=== PATIENT | male | born 1955 | race African-American/Black ===

== ENCOUNTER 2023-05-23 13:39 | Outpatient (CLI) | payer OTHER, SELFPAY ==
[2023-05-23 17:07] LABS: Basophils Absolute Auto 0.03 K/uL (0.00-0.30); Basophils Percent Auto 0.3 % (0.0-3.0); Eosinophils Absolute Auto 0.14 K/uL (0.00-0.50); Eosinophils Percent Auto 1.6 % (0.0-7.0); Hematocrit 40.4 % (37.0-53.0); Immature Granulocytes Abs Auto 0.04 K/uL (0.00-0.30); Immature Granulocytes Pct Auto 0.4 %; Lymphocytes Percent Auto 11.1 % (20-44); Mean Corpuscular HGB Conc 32 gm/dL (32-36); Mean Corpuscular Hemoglobin 30 pg (26-34); Mean Corpuscular Volume 95 fL (80-100); Monocytes Percent Auto 8.9 % (0.0-11.0); Neutrophils Percent Auto 77.7 % (42.0-72.0); Platelet Count* 206 K/uL (140-440); RDW Coefficient of Variation % 12.4 % (11.5-15.5); Red Blood Count 4.27 m/uL (4.30-5.90); White Blood Count* 8.91 K/uL (4.50-11.00)
[2023-05-23 17:11] LABS: Slide Review Reflex No
[2023-05-23 17:37] LABS: C Reactive Protein* 18.1 mg/dL (0.5-1.0)
== END 2023-05-23 13:40 | disposition home or self-care (01) ==
PROVIDERS: Visit Provider Surgery
DX: L97.518 Non-pressure chronic ulcer of other part of right foot with other specified severity (principal); E11.42 Type 2 diabetes mellitus with diabetic polyneuropathy; R50.9 Fever, unspecified; I48.20 Chronic atrial fibrillation, unspecified; I42.9 Cardiomyopathy, unspecified; Z79.4 Long term (current) use of insulin; Z95.0 Presence of cardiac pacemaker
CPT/HCPCS: 11042; 36415; 73630; 85025; 86140; 87070; 87186; G0463

== ENCOUNTER 2023-05-29 19:01 | Emergency (ER) | payer OTHER, SELFPAY ==
[2023-05-29 19:38] VITALS: BP 133/72; PULSE 94; RESP 18; TEMP 36.9; O2SAT 98; BMI 31.8
--- NOTE | 2023-05-29 20:19 | ED.GENADULT ---
HPI - General Adult General Time Seen by Provider: 20:20 Date Seen: 05/29/23 Chief complaint: Diabetic Related Problem Stated complaint: diabetic ulcer on R foot Time Seen by Provider: 05/29/23 20:19 Source: patient and RN notes reviewed Mode of arrival: ambulatory Limitations: no limitations History of Present Illness HPI narrative: Mr. Naik is a very pleasant 68-year-old gentleman with history of diabetic foot ulcer who comes to our emergency room for worsening symptoms. Patient is noted to have been dealing with a foot ulcer on his right foot. [facility] on [facility]23 at which time labs were drawn, an x-ray was taken and he was started on Keflex. Unfortunately he notes that he has had fever and what he describes as chills over this past weekend and he thinks that his symptoms are worsening. His foot is swollen and is erythematous. This was present last week when seen. He notes that the drainage has increased. He denies vomiting, chest pain. He is not a smoker. No history of lung, kidney, liver issues. He does have discomfort in his foot. His significant other is present appears very loving and supportive and they both have good insight into the problem. Patient denies a history of MRSA or resistant bacterial infections. Related Data Previous Rx's Medication Instructions Recorded cephalexin 500 mg capsule 500 mg PO QID #28 caps 05/23/23 Allergies Allergy/AdvReac Type Severity Reaction Status Date / Time azithromycin [From Zithromax] AdvReac Verified 05/29/23 19:41 Review of Systems Status of ROS: Reports: 10 or more systems reviewed and unremarkable except as noted in History and below Const: Reports: fever and chills GI: Denies: nausea or vomiting PFSH PFSH Social History Smoking Status: Never smoker Do you use any of these nicotine containing products: None Second hand tobacco smoke exposure: No How often do you have a drink containing alcohol: never How often do you have six or more drinks on one occasion: Never AUDIT-C Alcohol total score: 0 Non-prescribed substance use: denies use service: No Exam Narrative: Exam Narrative: Alert and oriented. No acute distress. Heart with regular rate and rhythm and lungs are clear. Abdomen soft nontender. Examination of lower extremities shows erythema and edema of the right dorsum of the foot extending onto the mid tibia. Removal of bandage on foot shows a ulcer approximately nickel sized on the sole beneath 3rd metatarsal. There is drainage from this area. It is not foul smelling. There is no edema of the plantar surface of the foot. He is able to move ankle and toes. Const: Vital Signs, click to edit/add: Vital Signs - 24 hr 05/29/23 19:38 Temperature 98.4 F Pulse Rate [Pulse Oximeter] 94 Respiratory Rate 18 Blood Pressure [Le ft Upper Arm] 133/72 Pulse Oximetry 98 Oxygen Delivery Me thod Room Air Documenting provider has reviewed patient's vital signs: yes Course Course ED Course: X-ray from 05/23 shows no evidence of osteomyelitis. Do not feel the need to repeat that tonight Culture from 05/23 is positive 1st group B strep. The following sensitivities is noted: Ampicillin <=0.25 S Levofloxacin 1 S Linezolid 2 S Tetracycline >=16 R Tigecycline <=0.12 S Vancomycin Vital Signs Vital signs: Initial Vital Signs Temperature 98.4 F 05/29/23 19:38 Temperature Source Temporal Artery Scan 05/29/23 19:38 Pulse Rate 94 05/29/23 19:38 Respiratory Rate 18 05/29/23 19:38 Blood Pressure 133/72 05/29/23 19:38 Blood Pressure Mean 92 05/29/23 19:38 Blood Pressure Position Sitting 05/29/23 19:38 Pulse Oximetry 98 05/29/23 19:38 Oxygen Delivery Method Room Air 05/29/23 19:38 Vital Signs Temperature 98.4 F 05/29/23 19:38 Pulse Rate 94 05/29/23 19:38 Respiratory Rate 18 05/29/23 19:38 Blood Pressure 133/72 05/29/23 19:38 Pulse Oximetry 98 05/29/23 19:38 Oxygen Delivery Method Room Air 05/29/23 19:38 Temperature 98.4 F 05/29/23 19:38 Pulse Rate 94 05/29/23 19:38 Respiratory Rate 18 05/29/23 19:38 Blood Pressure 133/72 05/29/23 19:38 Pulse Oximetry 98 05/29/23 19:38 Oxygen Delivery Method Room Air 05/29/23 19:38 Medical Decision Making MDM Narrative Medical decision making narrative: 1. Cellulitis-this appears to be a complication of a diabetic foot ulcer. Patient has been on Keflex. Culture from 05/23 has been returned as group B strep. Given these findings would like to place patient on Levaquin at this time pending reassuring laboratory values. At this time patient is afebrile with no evidence of sepsis. Plan on blood cultures prior to discharge. 2. History of diabetes- 3. Disposition-fortunately white count is within normal limits. CRP is 22 verses 18 from 05/23/2023. Culture of the wound showed group B strep. Patient was given Levaquin 750 mg p.o. this evening. He has a follow-up with the wound care clinic tomorrow which I am happy about. We have no beds available for admission tonight. Since Levaquin has bile availability p.o. equal to that of IV I do feel that this is appropriate medication for discharge. No history of MRSA and this is not a staph infection. Blood cultures were accomplished tonight. Patient is to return to the ER for fever, vomiting, worsening symptoms otherwise follow up as directed for tomorrow. Wound care clinic will need to continue Levaquin or antibiotic of their choice tomorrow. Medical Records Medical records reviewed: Yes I reviewed the patient's medical records Medical records narrative: Unable to find wound care note but did review previous x-ray and laboratory values from 05/23. Lab Data Lab results reviewed: Yes I reviewed the patient's lab results Labs: Lab Results 05/29/23 Range/Units 21:15 WBC 8.30 (4.50-11.00) K/uL RBC 3.73 L (4.30-5.90) m/uL Hgb 11.3 L (13.5-17.5) gm/dL Hct 35.1 L (37.0-53.0) % MCV 94 (80-100) fL MCH 30 (26-34) pg MCHC 32 (32-36) gm/dL RDW Coeff of Balwinder 12.0 (11.5-15.5) % Plt Count 260 (140-440) K/uL Neut % (Auto) 77.5 H (42.0-72.0) % Lymph % (Auto) 10.7 L (20-44) % [place] % (Auto) 9.2 (0.0-11.0) % Eos % (Auto) 1.8 (0.0-7.0) % Baso % (Auto) 0.2 (0.0-3.0) % Neut # (Auto) 6.40 (1.7-7.0) K/uL Lymph # (Auto) 0.90 (0.90-2.90) K/uL [place] # (Auto) 0.80 (0.00-0.90) K/UL Eos # (Auto) 0.15 (0.00-0.50) K/uL Baso # (Auto) 0.02 (0.00-0.30) K/uL Abs Immat Gran (auto) 0.05 (0.00-0.30) K/uL Imm/Tot Granulo (auto) 0.6 % Sodium 133 L (135-149) mmol/L Potassium 3.9 (3.6-5.1) mmol/L Chloride 100 (96-114) mmol/L Carbon Dioxide 26 (20-32) mmol/L Anion Gap 7 (7-15) mEq/L BUN 21 (7-30) mg/dL Creatinine 1.2 (0.5-1.5) mg/dL Estimated Creat Clear 77.22 Estimated GFR 66 ml/min Glucose 315 H (60-115) mg/dL Calcium 8.8 (8.4-10.6) mg/dL C-Reactive Protein 22.9 H (0.5-1.0) mg/dL Discharge Plan Discharge Clinical Impression: Diabetic ulcer of foot associated with diabetes mellitus due to underlying condition, with muscle involvement without evidence of necrosis Qualifiers: Diabetic foot ulcer location: other Laterality: right Qualified Code(s): E08.621 - Diabetes mellitus due to underlying condition with foot ulcer Cellulitis Qualifiers: Site of cellulitis: extremity Site of cellulitis of extremity: lower extremity Laterality: right Qualified Code(s): L03.115 - Cellulitis of right lower limb Patient Disposition: Home, Self-Care Condition: Unchanged Additional Instructions: Stop Keflex at this time. Will instead use the antibiotic Levaquin. This medication is absorbed to a level equal to that as IV administration and therefore we will give you pills at this time. Please keep your appointment with the [facility] tomorrow. However, if you start running high fevers, experiencing vomiting I would like you to return to the emergency room. Levaquin is a great antibiotic but does have some side effects. Uncommonly it can cause inflammation of the tendons. If you started experiencing heel pain, shoulder pain we will need to switch you to a different antibiotic. Push fluids. Prescriptions: No Action cephalexin 500 mg capsule 500 mg PO QID Qty: 28 0RF Follow Up/Referrals: Generic,Amb Provider [Staff Physician] - Stand Alone Forms: Appear Here Info Instructions
[2023-05-29 21:32] LABS: Basophils Absolute Auto 0.02 K/uL (0.00-0.30); Basophils Percent Auto 0.2 % (0.0-3.0); Eosinophils Absolute Auto 0.15 K/uL (0.00-0.50); Eosinophils Percent Auto 1.8 % (0.0-7.0); Hematocrit 35.1 % (37.0-53.0); Hemoglobin* 11.3 gm/dL (13.5-17.5); Immature Granulocytes Abs Auto 0.05 K/uL (0.00-0.30); Immature Granulocytes Pct Auto 0.6 %; Lymphocytes Percent Auto 10.7 % (20-44); Mean Corpuscular HGB Conc 32 gm/dL (32-36); Mean Corpuscular Hemoglobin 30 pg (26-34); Mean Corpuscular Volume 94 fL (80-100); Monocytes Percent Auto 9.2 % (0.0-11.0); Neutrophils Percent Auto 77.5 % (42.0-72.0); Platelet Count* 260 K/uL (140-440); Red Blood Count 3.73 m/uL (4.30-5.90)
[2023-05-29 21:44] LABS: Chloride* 100 mmol/L (96-114); Potassium* 3.9 mmol/L (3.6-5.1); Slide Review Reflex No; Sodium* 133 mmol/L (135-149)
[2023-05-29 21:46] LABS: Creatinine* 1.2 mg/dL (0.5-1.5); Est. Creatinine Clearance* 77.22; Estimated Glomerular Filt Rate 66 ml/min
[2023-05-29 21:47] LABS: Anion Gap 7 mEq/L (7-15); Blood Urea Nitrogen* 21 mg/dL (7-30); Calcium* 8.8 mg/dL (8.4-10.6); Carbon Dioxide* 26 mmol/L (20-32); Glucose* 315 mg/dL (60-115)
[2023-05-29 22:01] LABS: C Reactive Protein* 22.9 mg/dL (0.5-1.0)
== END 2023-05-29 22:48 | disposition home or self-care (01) ==
PROVIDERS: Emergency Provider Family Medicine
DX: E11.621 Type 2 diabetes mellitus with foot ulcer (principal); L97.515 Non-pressure chronic ulcer of other part of right foot with muscle involvement without evidence of necrosis; L03.115 Cellulitis of right lower limb
CPT/HCPCS: 36415; 80048; 85025; 86140; 87040; 99283; 99284

== ENCOUNTER 2023-05-30 13:45 | Outpatient (CLI) | payer OTHER, SELFPAY | END 2023-05-30 13:46 | disposition home or self-care (01) | PROVIDERS: Visit Provider Surgery | DX: L03.115 Cellulitis of right lower limb (principal); E11.42 Type 2 diabetes mellitus with diabetic polyneuropathy; L97.518 Non-pressure chronic ulcer of other part of right foot with other specified severity; Z79.4 Long term (current) use of insulin | CPT/HCPCS: G0463 ==